=== PATIENT | male | born 1995 | race Caucasian/White ===

== ENCOUNTER 2020-09-01 16:14 | Emergency (ER) | payer OTHER, SELFPAY ==
[2020-09-01 16:21] VITALS: BP 155/76; PULSE 86; RESP 12; TEMP 36.7; O2SAT 100
--- NOTE | 2020-09-01 17:25 | ED_ITS ---
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 He states that he has noticed a rash over the past several weeks. 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 Has been located in his armpits, across the back of his neck, across his buttocks and on his fingers. He states that it is itchy. Has tried Benadryl without much improvement. While he was deployed he did try a topical steroid cream and he thought that this did improve his symptoms somewhat. Denies any fevers. No new exposures. No prob lems breathing. Related Data Previous Rx's Medication Instructions Recorded prednisone 20 mg PO DAILY 6 Days #6 tab 09/01/20 Allergies Allergy/AdvReac Type Severity Reaction Status Date / Time No Known Drug Allergies Allergy Verified 09/01/20 16:25 Review of Systems Constitutional Constitutional: Denies fever(s) and Denies headache(s) ENT Ears, Nose, Mouth, and Throat: Denies headache(s) Cardiovascular Cardiovascular: Denies chest pain and Denies dyspnea Respiratory Respiratory: Denies dyspnea Gastrointestinal Gastrointestinal: Denies abdominal pain, Denies nausea and Denies vomiting Genitourinary Genitourinary: Denies dysuria Genitourinary: Denies dysuria Musculoskeletal Musculoskeletal: Denies arthralgias and Denies myalgias Integumentary/Breasts Skin/Breast: Reports pruritus, Denies lesions and Reports rash Neurologic Neurologic: Denies behavioral changes and Denies headache(s) Psychiatric Psychiatric: Denies behavioral changes Hematologic/Lymphatic Hematologic/Lymphatic: Denies easy bleeding and Denies easy bruising Patient History Medical History Healthy adult Social History Smoking Status: Never smoker Smoking Status: Never smoker alcohol intake frequency: 3 or more drinks per day Substance Use Type: does not use Exam Initial Vital Signs Initial Vital Signs: Vital Signs Temperature 98.0 F 09/01/20 16:21 Pulse Rate 86 09/01/20 16:21 Respiratory Rate 12 09/01/20 16:21 Blood Pressure 155/76 H 09/01/20 16:21 Pulse Oximetry 100 09/01/20 16:21 Const General: cooperative, comfortable and well developed Limitations: mental status not altered HENMT Head: normal to inspection and normocephalic Resp Effort & Inspection: normal respiratory effort Cardio Rate: regular rate Skin Other: Patient with areas of redness without pustules or vesicles located mainly on his antecubital fossa bilaterally also his armpits. Small amount located in the back of his neck. Neuro General: patient alert and patient awake Cognition: normal cognition Speech: speech normal Extrem General: normal to inspection and capillary refill normal Psych Appearance: grossly normal and well kempt Scores GCS [place] coma scale eye opening: Spontaneous [place] coma scale verbal response: Orientated Arm[place] coma scale motor response: Obey commands Armando coma scale total score: 15 Course Orders Ordered: Discontinued Medications Prednisone (Prednisone 20 Mg Tablet) 20 mg PO NOW ONE Stop: 09/01/20 17:29 Vital Signs Vital signs: Vital Signs - 8 hr 09/01/20 16:21 Temperature 98.0 F Pulse Rate 86 Respiratory Rate 12 Blood Pressure 155/76 H Pulse Oximetry 100 MDM - Skin/Abscess/Foreign Bdy MDM Narrative Medical decision making narrative: Patient does not have signs of anaphylaxis. Some of the findings of his skin rash could be consistent with tinea corporis as it did seem to light of under a Wood's lamp especially on his fingers however other areas of his body did not. He showed me pictures of what the rash looked like on his buttocks and this did have a strong appearance of tinea however he states that it did improve after taking topical steroid cream while he was deployed. It does not give the impression of erythema multiforme or Cao- Darshan syndrome or TEN. I feel we should hold on any antibiotics for now. Plan to be is to start the patient on a short course of some steroids. He was informed that if his rash worsened after starting steroids he should stop it i mmediately and seek attention from his medical department he expressed understanding and agreement. Discharge Plan Departure Patient Disposition: Home Clinical Impression: Rash Instructions: DI for Rash Activity Restrictions/Additional Instructions: You do need to talk with your medical department to establish a follow-up. Start taking the steroids as directed. If your symptoms worsen while taking this medication. It immediately as this could mean that it is a fungal infection. You were given your 1st dose of steroids here in the emergency department. Her 2nd dose will be on Tuesday09/02/2020 return to the emergency department for any new or worsening symptoms Prescriptions: New prednisone 20 mg tablet 20 mg PO DAILY 6 Days Qty: 6 RF: 0
[2020-09-01] MEDS: predniSONE 20 MG TABLET PO (17:45)
== END 2020-09-01 17:59 | disposition home or self-care (01) ==
PROVIDERS: Emergency Provider Emergency Medicine
DX: R21 Rash and other nonspecific skin eruption (principal)
CPT/HCPCS: 99281; 99283

== ENCOUNTER 2020-09-20 10:31 | Emergency (ER) | payer OTHER, SELFPAY ==
[2020-09-20] VITALS (8 sets, daily range): BP systolic 117–151; BP diastolic 58–65; PULSE 63–106; RESP 16; TEMP 36.5; O2SAT 94–97; BMI 25.1
--- NOTE | 2020-09-20 10:56 | DI.RAD.S_ITS ---
PROCEDURE: XR THORACIC SPINE 2V INDICATIONS: fall, pain TECHNIQUE: 2 views of the thoracic spine were acquired. COMPARISON: None. FINDINGS: Bones: No fractures or dislocations. No suspicious bony lesions. 12 pairs of ribs are noted, and appear intact where visualized. Soft tissues: No paravertebral stripe thickening. Visualized portions of the lungs are clear on the frontal projection. IMPRESSION: No acute osseous abnormality. Dictated by: Bhargav Elliott M.D. on 09/20/2020 at 11:12 Approved by: Bhargav Elliott M.D. on 09/20/2020 at 11:13
--- NOTE | 2020-09-20 10:56 | DI.RAD.S_ITS ---
PROCEDURE: XR SACRUM COCCYX MIN 2V INDICATIONS: pain, fall TECHNIQUE: 3 views of the sacrum and coccyx acquired. COMPARISON: [facility], CR, XR PELVIS 1-2V, 09/20/2020, 11:24. FINDINGS: Bones: No fractures or dislocations. No suspicious bony lesions. Soft tissues: Visualized bowel gas pattern is normal. No suspicious soft tissue densities. IMPRESSION: No acute osseous abnormality. Dictated by: Bhargav Elliott M.D. on 09/20/2020 at 11:11 Approved by: Bhargav Elliott M.D. on 09/20/2020 at 11:11
--- NOTE | 2020-09-20 10:56 | DI.RAD.S_ITS ---
PROCEDURE: XR LUMBAR SPINE 2-3V INDICATIONS: fall, pain TECHNIQUE: 3 views of the lumbar spine were acquired. COMPARISON: None. FINDINGS: Bones: 5 [id number] vertebrae are present. There is normal bony alignment. No vertebral body compression fractures. No suspicious bony lesions. Soft tissues: Overlying bowel gas pattern is normal. No suspicious soft tissue calcifications. IMPRESSION: No acute osseous abnormality. Dictated by: Bhargav Elliott M.D. on 09/20/2020 at 11:09 Approved by: Bhargav Elliott M.D. on 09/20/2020 at 11:10
--- NOTE | 2020-09-20 10:56 | DI.RAD.S_ITS ---
PROCEDURE: XR PELVIS 1-2V INDICATIONS: fall, pain TECHNIQUE: 1 view(s) of the pelvis acquired. COMPARISON: [facility], CR, XR SACRUM COCCYX MIN 2V, 09/20/2020, 11:24. FINDINGS: Bones: No fractures or dislocations. No suspicious bony lesions. Soft tissues: Visualized bowel gas pattern is normal. No suspicious soft tissue calcifications. IMPRESSION: No fracture or dislocation identified. Dictated by: Bhargav Elliott M.D. on 09/20/2020 at 11:10 Approved by: Bhargav Elliott M.D. on 09/20/2020 at 11:11
[2020-09-20] MEDS: KETOROLAC 60 MG/2 ML VIAL 15 MG IV (11:26)
[2020-09-20] MEDS: ONDANSETRON 4 MG/2 ML INJ IV (11:26)
[2020-09-20] MEDS: HYDROMORPHONE 0.5 MG INJ IV ×2 (11:26→11:53)
--- NOTE | 2020-09-20 11:53 | PC.NURSE ---
medicated for pain, sitting up in bed reading book. NAD. awaiting XR results
--- NOTE | 2020-09-20 12:35 | ED_ITS ---
HPI - Fall General Chief Complaint: Fall Stated Complaint: fell off roof putting up martha lights Time Seen by Provider: 09/20/20 10:46 Source: patient Mode of arrival: Wheelchair History of Present Illness HPI Narrative: Otherwise healthy 25-year-old man was putting up [place] lights, jumped down from the ladder landed on do weak grass feet went out from under him and he landed on his sacrum and low back with significant low back p ain without neurologic dysfunction. He states it hurts as much as when he broke his jaw. He was able to crawl to the door to get help. Is having severe pain and spasm in the lumbar spine area. Related Data Previous Rx's Medication Instructions Recorded cyclobenzaprine 10 mg PO TID PRN #10 tab 09/20/20 oxycodone-acetaminophen 1 tab PO Q6H PRN 7 Days #20 tab 09/20/20 Allergies Allergy/AdvReac Type Severity Reaction Status Date / Time No Known Drug Allergies Allergy Verified 09/20/20 10:41 Review of Systems Review of Systems Narrative: Pertinent positive and negative findings as per HPI Remainder of review of systems is otherwise unremarkable for Constitutional: Fevers, chills, weakness ENT: No sore throat, neck pain, ear pain CV: Chest pain, palpitations, dyspnea on exertion Respiratory: Cough, wheeze, dyspnea GI: Nausea, vomiting, diarrhea, : Dysuria, hematuria, flank pain MS: Muscle weakness, numbness, joint swelling or warmth Patient History Medical History Healthy adult Social History Smoking Status: Former smoker Smoking Status: Former smoker alcohol intake frequency: 3 or more drinks per day Substance Use Type: does not use Exam Narrative Exam Narrative: General: Healthy appearing, significant low back pain and spasm but Able to give a complete and coherent history. Well-nourished well-developed HEENT: Moist mucous membranes, normal sclera with reactive pupils, no obvious trauma or tenderness Neck: No paraspinous muscle spasm or midline cervical spine tenderness, supple Respiratory: Lungs are clear to auscultation, no wheezing no rales no rhonchi. Full and symmetrical air movement Cardiac: Regular rate and rhythm no murmurs no bruits Abdomen: Soft nontender good bowel tones, no flank pain Skin: Warm and dry, no rashes Spine: Midline tenderness T10 through to the sacrum with significant paraspinous spasm as well. Neurologic: Grossly neurologically intact with no obvious asymmetries or abnormalities. Full sensation to both lower extremities with full movement, had any manipulation or movement of the legs does cause pain centrally lumbar spine. Extremities: No trauma, well perfused Psych: Cooperative, appropriate insight and affect Initial Vital Signs Initial Vital Signs: Vital Signs Temperature 97.7 F 09/20/20 10:35 Pulse Rate 103 H 09/20/20 10:35 Respiratory Rate 16 09/20/20 10:35 Blood Pressure 151/65 H 09/20/20 10:35 Pulse Oximetry 97 09/20/20 10:35 Course Orders Ordered: ED Orders 09/20/20 10:56 XR lumbar spine 2-3V Stat XR pelvis 1-2V Stat XR sacrum coccyx min 2V Stat XR thoracic spine 2V Stat Hydromorphone HCl (Hydromorphone 0.5 Mg Inj) 0.5 mg IV Q15MIN PRN PRN Reason: Pain, Last Admin: 09/20/20 11:53 Dose: 0.5 mg Documented by: Admin: 09/20/20 11:26 Dose: 0.5 mg Documented by: ALEXANDRA Sodium Chloride (Normal Saline 0.9%) 1,000 mls @ 1,000 mls/hr IV BOLUS ONE Stop: 09/20/20 13:48 Discontinued Medications Ketorolac Tromethamine (Ketorolac 60 Mg/2 Ml Vial) 15 mg IV NOW ONE Stop: 09/20/20 10:57 Last Admin: 09/20/20 11:26 Dose: 15 mg Documented by: ALEXANDRA Ondansetron HCl (Ondansetron 4 Mg/2 Ml Inj) 4 mg IV NOW ONE Stop: 09/20/20 10:57 Last Admin: 09/20/20 11:26 Dose: 4 mg Documented by: ALEXANDRA Vital Signs Vital signs: Vital Signs - 8 hr 09/20/20 10:35 09/20/20 11:49 09/20/20 12:00 Temperature 97.7 F Pulse Rate 103 H 106 H 99 H Respiratory Rate 16 Blood Pressure 151/65 H Pulse Oximetry 97 97 96 MDM - Fall Medical Records Attestation: I reviewed the patient's medical records. Imaging Data X-ray thoracic spine: Radiologist's Impression: FINDINGS: Bones: No fractures or dislocations. No suspicious bony lesions. 12 pairs of ribs are noted, and appear intact where visualized. Soft tissues: No paravertebral stripe thickening. Visualized portions of the l ungs are clear on the frontal projection. IMPRESSION: No acute osseous abnormality. Dictated by: Bhargav Elliott M.D. on 09/20/2020 at 11:12 X-ray sacrum and coccyx: Radiologist's Impression: FINDINGS: Bones: No fractures or dislocations. No suspicious bony lesions. Soft tissues: Visualized bowel gas pattern is normal. No suspicious soft tissue densities. IMPRESSION: No acute osseous abnormality. Dictated by: Bhargav Elliott M.D. on 09/20/2020 at 11:11 X-ray pelvis: Radiologist's Impression: FINDINGS: Bones: No fractures or dislocations. No suspicious bony lesions. Soft tissues: Visualized bowel gas pattern is normal. No suspicious soft tissue calcifications. IMPRESSION: No fracture or dislocation identified. Dictated by: Bhargav Elliott M.D. on 09/20/2020 at 11:10 X-ray lumbar spine: Radiologist's Impression: FINDINGS: Bones: 5 [id number] vertebrae are present. There is normal bony alignment. No vertebral body compression fractures. No suspicious bony lesions. Soft tissues: Overlying bowel gas pattern is normal. No suspicious soft tissue calcifications. IMPRESSION: No acute osseous abnormality. Dictated by: Bhargav Elliott M.D. on 09/20/2020 at 11:09 Discharge Plan Departure Patient Disposition: Home Clinical Impression: Back pain due to injury Fall Qualifiers: Encounter type: initial encounter Qualified Code(s): W19.XXXA - Unspecified fall, initial encounter Instructions: DI for Low Back Pain Activity Restrictions/Additional Instructions: Thank you for coming in today You had a dramatic amount of pain after your fall this morning. We did x-rays of your thoracic spine, lumbar spine, pelvis as well as sacrum and tailbone. You do not have any broken bones. You clearly have a significant contusion to your back and your likely going to be more sore tomorrow. I am going to recommend that you do not return to work until Tuesday due to pain. Using 400 mg of ibuprofen (2 [id number] pills) and 1 Tylenol every 6 hours can be very helpful in controlling pain. For severe pain using 400 mg of ibuprofen and 1 Percocet will be helpful. If you are having a significant component of muscle spasm, using cyclobenzaprine may be helpful. Ice to the area will help with inflammation. Early mobilization, which means walking even when your hurting, is actually quite helpful. I would not recommend significant exercise or sports that require rapid movement, twisting or turning until your pain is controlled without using any pain medications at all. If you do and if using Percocet, please be aware that it is a narcotic and narcotics cause constipation. Please use extra water, stool softeners or a cup of prune juice each day that you end up using narcotics. I hope you heal quickly Prescriptions: New oxycodone-acetaminophen 5-325 mg tablet 1 tab PO Q6H PRN (Reason: pain) 7 Days Qty: 20 RF: 0 cyclobenzaprine 10 mg tablet 10 mg PO TID PRN (Reason: muscle spasm) Qty: 10 RF: 0 Stand Alone Forms: Work Release Note
[2020-09-20] MEDS: SODIUM CHLORIDE 0.9% 1,000 ML 1000 ML IV (13:00)
== END 2020-09-20 13:48 | disposition home or self-care (01) ==
PROVIDERS: Emergency Provider Emergency Medicine
DX: S39.92XA Unspecified injury of lower back, initial encounter (principal); W19.XXXA Unspecified fall, initial encounter
CPT/HCPCS: 36415; 72070; 72100; 72170; 72220; 96361; 96374; 96375; 99284; J1170; J1885; J2405

== ENCOUNTER 2021-04-18 14:59 | Emergency (ER) | payer OTHER, SELFPAY ==
[2021-04-18 15:03] VITALS: BP 132/74; PULSE 97; RESP 20; TEMP 36.6; O2SAT 98; BMI 24.4
[2021-04-18] MEDS: IBUPROFEN 400 MG TABLET 800 MG PO (16:28)
[2021-04-18] MEDS: ACETAMINOPHEN 325 MG TABLET 975 MG PO (16:28)
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
[2021-04-18] MEDS: HYDROMORPHONE 1 MG INJ IM (18:27)
[2021-04-18 18:38] VITALS: BP 125/80; PULSE 62; RESP 14; O2SAT 99
[2021-04-18] MEDS: OXYCODONE/APAP 5/325 PREPACK 1 BOTTLE MISC (19:54)
== END 2021-04-18 18:38 | disposition home or self-care (01) ==
PROVIDERS: Emergency Provider Emergency Medicine
DX: G89.18 Other acute postprocedural pain (principal)
CPT/HCPCS: 96372; 99283; 99284; J1170

== ENCOUNTER 2021-06-10 15:58 | Emergency (ER) | payer OTHER, SELFPAY ==
[2021-06-10 16:15] VITALS: BP 129/73; PULSE 87; RESP 22; TEMP 36.3; O2SAT 100
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
[2021-06-10 19:02] VITALS: BP 133/81; PULSE 94; O2SAT 99
== END 2021-06-10 19:26 | disposition home or self-care (01) ==
PROVIDERS: Emergency Provider Emergency Medicine
DX: M25.571 Pain in right ankle and joints of right foot (principal)
CPT/HCPCS: 73590; 99283